=== PATIENT | female | born 1955 ===

== ENCOUNTER 2018-06-22 18:11 | Inpatient (IN) | payer MEDICARE ==
[2018-06-22 18:26] VITALS: BMI 26.6
--- NOTE | 2018-06-22 18:36 | ED PDOC ---
Arrival/HPI - General Time Seen by Provider: 06/22/18 18:12 Historian: Patient - History of Present Illness Narrative History of Present Illness (Text): 06/22/18 18:33 63 y/o female, pmh including hypothyroidism/RA/HLD/COPD, allergic to seafood with no drug allergy, chronic smoker, c/o coughing x 1 week with fatigue. Pt. stated that she has clear productive coughing progress to green color sputum, associated with fatigue for the past 3 days, admits wheezing, no chest pain or shortness of breath, no change in vision, no rash, no other medical or psychological complaints. Past Medical History - Provider Review Nursing Documentation Reviewed: Yes - Cardiac Hx Pacemaker: No - Neurological Hx Paralysis: No - Hematological/Oncological Hx Blood Transfusions: No Hx Blood Transfusion Reaction: No - Musculoskeletal/Rheumatological Hx Musculoskeletal Disorders: Yes - Psychiatric Hx Emotional Abuse: No Hx Physical Abuse: No Hx Substance Use: No - Anesthesia Hx Anesthesia Reactions: Yes (DIFFICULT TO AROUSE) Hx Malignant Hyperthermia: No - Suicidal Assessment Feels Threatened In Home Enviroment: No Family/Social History - Physician Review Nursing Documentation Reviewed: Yes Family/Social History: Unknown Family HX Hx Alcohol Use: No Hx Substance Use: No Hx Substance Use Treatment: No Allergies/Home Meds Allergies/Adverse Reactions: Allergies SEAFOOD Allergy (Mild, Uncoded 06/22/18 18:26) PAIN Home Medications: Home Meds Medication Instructions Recorded Confirmed Bupropion HCl [Bupropion HCl Xl] 150 mg PO DAILY 03/25/16 06/09/16 Cyclobenzaprine [Flexeril] 1 tab PO Q12H PRN 03/25/16 06/09/16 Docusate [Colace] 100 mg PO BID 03/25/16 06/09/16 Esomeprazole Magnesium [Nexium] 40 mg PO DAILY 03/25/16 06/09/16 Levothyroxine [Levoxyl] 0.125 mg PO DAILY 03/25/16 06/09/16 Methotrexate 6 tab PO QWK 03/25/16 06/09/16 Rosuvastatin Calcium [Crestor] 20 mg PO DAILY 03/25/16 06/09/16 Temazepam [Restoril] 1 tab PO HS 03/25/16 06/09/16 traMADol [Ultram] 50 mg PO TID 03/25/16 06/09/16 Polyethylene Glycol 3350 [Miralax] 17 gm PO DAILY 06/04/16 06/09/16 Hyoscyamine [Levsin] 1 tab PO Q4H PRN 06/09/16 06/09/16 Peg 400/Hypromellose/Glycerin [Cvs 1 drop TOP DAILY 06/09/16 06/09/16 Dry Eye Relief Eye Drops] Review of Systems - Review of Systems Constitutional: Fatigue. absent: Fevers Eyes: absent: Vision Changes ENT: absent: Hearing Changes Respiratory: Cough, Sputum, Wheezing. absent: SOB Cardiovascular: absent: Chest Pain, ARTHUR, Orthopnea Gastrointestinal: absent: Abdominal Pain, Nausea, Vomiting Musculoskeletal: absent: Arthralgias, Back Pain Skin: absent: Rash, Pruritis Psychiatric: absent: Anxiety, Depression, Suicidal Ideation Physical Exam Vital Signs Reviewed: Yes Temperature: Afebrile Blood Pressure: Normal Pulse: Regular Respiratory Rate: Normal Appearance: Positive for: Well-Appearing, Non-Toxic, Comfortable Pain Distress: None Mental Status: Positive for: Alert and Oriented X 3 - Systems Exam Head: Present: Atraumatic, Normocephalic Pupils: Present: PERRL Extroacular Muscles: Present: EOMI Conjunctiva: Present: Normal Ears: Present: Normal, NORMAL TM, Normal Canal. No: Erythema Mouth: Present: Moist Mucous Membranes Pharnyx: Present: Normal. No: ERYTHEMA, EXUDATE, TONSILS ENLARGED Nose (External): Present: Atraumatic. No: Abrasion, Contusion, Laceration Nose (Internal): Present: Normal Inspection, No Active Bleeding. No: Rhinorrhea, Septal Hematoma, Epistaxis Neck: Present: Normal Range of Motion. No: Meningeal Signs, MIDLINE TENDERNESS, Paraspinal Tenderness, Lymphadenopathy Respiratory/Chest: Present: Clear to Auscultation, Good Air Exchange, Wheezes (bilateral), Decreased Breath Sounds (bilateral), Rhonchi (bilateral). No: Respiratory Distress, Accessory Muscle Use, Rales, Retracting, Tachypneic Cardiovascular: Present: Regular Rate and Rhythm, Normal S1, S2. No: Murmurs Abdomen: No: Tenderness, Distention, Peritoneal Signs, Rebound, Guarding Back: Present: Normal Inspection Upper Extremity: Present: Normal Inspection. No: Cyanosis, Edema Lower Extremity: Present: Normal Inspection. No: Edema Neurological: Present: GCS=15, CN II-XII Intact, Speech Normal Skin: Present: Warm, Dry, Normal Color. No: Rashes Psychiatric: Present: Alert, Oriented x 3, Normal Insight, Normal Concentration Medical Decision Making ED Course and Treatment: 06/22/18 18:36 Differential: Pneumonia vs. Bronchitis vs. COPD vs. CHF vs. sepsis -Labs/bnp/trop -CXR -EKG -IV solumedrol/duoneb -phototypesetting equipment monitor -Observe and reassess 06/22/18 20:59 -EKG:SB @ 54 BPM, no ST elevation or depression, T wave inversion on lead aVR -CXR show no active disease -Labs show no acute findings -Lactic acid within normal limit -BNP within normal limit -Trop within normal limit -Pt. feels slightly better but she still has wheezing/rhonchi, not stable to be discharged home, will admit the patient for observation tele. -All labs and radiology results discussed with the patient and she agreed to be admitted. IV rocephine and azithromycin ordered for her. IVF and xopenex with oxygen 2L ordered as well. -Paging Dr. Natarajan for admission. 06/22/18 21:04 -I spoke to Dr. Natarajan about this case/labs/radiology result, agreed to admit the patient for observation and he would follow up on the case. - RAD Interpretation Radiology Orders: 06/22/18 18:31 CHEST PORTABLE [RAD] Stat - EKG Interpretation EKG Interpretation (Text): 06/22/18 18:38 SB @ 54 BPM, no ST elevation or depression, T wave inversion on lead aVR Interpreted by ED Physician: Yes Type: 12 lead EKG - Medication Orders Current Medication Orders: Albuterol/Ipratropium (Duoneb 3 Mg/0.5 Mg (3 Ml) Ud) 3 ml IH Q15M [facility]INA Stop: 06/22/18 19:16 Methylprednisolone (Solu-Medrol) 125 mg IVP STAT STA Stop: 06/22/18 18:32 - PA / PEDIATRIC PSYCHOLOGIST / Resident Statement /DO has reviewed & agrees with the documentation as recorded. Disposition/Present on Arrival - Present on Arrival Any Indicators Present on Arrival: No History of DVT/PE: No History of Uncontrolled Diabetes: No Urinary Catheter: No History of Decub. Ulcer: No History Surgical Site Infection Following: None - Disposition Have Diagnosis and Disposition been Completed?: Yes Diagnosis: COPD (chronic obstructive pulmonary disease) Disposition: HOSPITALIZED Disposition Time: 21:01 Patient Plan: Admission, Observation, Telemetry Patient Problems: Current Active Problems Problem Status Onset COPD (chronic obstructive pulmonary disease) Acute Condition: STABLE Referrals: Jason Natarajan JD, MD [Primary Care Provider] - Follow up with primary
[2018-06-22] MEDS: Albuterol-Ipratrop 3 mg / 0.5 (3 ml) UD IH SCH ×3 (19:23→20:00)
[2018-06-22 19:49] LABS: VENOUS BLOOD GAS BASE EXCESS 0.5 mmol/L (0.0-2.0); VENOUS BLOOD GAS PO2 114 mm/Hg (30-55)
[2018-06-22 19:50] LABS: BASO # 0.02 K/mm3 (0.0-2.0); BASO % 0.3 % (0.0-3.0); EOS # 0.1 (0.0-0.7); EOS % 1.8 % (1.5-5.0); GRAN # 3.72 (1.4-6.5); GRAN % 50.5 % (50.0-68.0); HEMOGLOBIN 13.9 g/dL (12.0-16.0); LYMPH % 40.9 % (22.0-35.0); MEAN CELL VOLUME 93.5 fl (80.0-105.0); MEAN CORPUSCULAR HGB CONC 33.1 g/dl (31.0-37.0); MEAN PLATELET VOLUME 10.3 fl (7.0-11.0); MONO # 0.5 (0.1-0.6); MONO % 6.5 % (1.0-6.0); RBC 4.49 10^6/uL (3.5-6.1); RED CELL DISTRIBUTION WIDTH 14.3 % (11.5-14.5); WHITE BLOOD COUNT 7.4 10^3/ul (4.5-11.0)
[2018-06-22 20:04] LABS: ALB/GLOB RATIO 1.2 (1.1-1.8); ALBUMIN 3.6 g/dL (3.0-4.8); ALT/SGPT 27 U/L (7-56); AST/SGOT 29 U/L (14-36); BLOOD UREA NITROGEN 20 mg/dL (7-21); GFR NON-AFRICAN AMERICAN > 60
[2018-06-22 20:14] LABS: B-TYPE NATRIURETIC PEPTIDE 63.3 pg/mL (0-450); TROPONIN I < 0.01 ng/mL
[2018-06-22] MEDS ORDERED: Azithromycin 500MG/NS 250ml 500 MG/250 ML BAG IVPB STA (20:58)
[2018-06-22] MEDS ORDERED: cefTRIAXone 1 gm 1 GM/100 ML BAG IVPB STA (20:58)
[2018-06-22] MEDS ORDERED: Levalbuterol 1.25 MG/3 ML Inhal Soln UD IH STA (21:02)
[2018-06-22] MEDS: Sodium Chloride 0.9% 1,000 ML IV SCH (21:45)
[2018-06-23] MEDS ORDERED: guaiFENesin 100 mg/5 ml Syrup UD PO ONE (01:16)
--- NOTE | 2018-06-23 06:29 | CARD ---
APPROVED REPORT Date of service: 06/22/2018 EKG Measurement Heart [id number] <Conclusion> Sinus bradycardia Nonspecific T wave abnormality Abnormal ECG
--- NOTE | 2018-06-23 08:35 | RAD ---
Date of service: 06/22/2018 HISTORY: medical clearance COMPARISON: 03/14/2014 FINDINGS: LUNGS: No active pulmonary disease. PLEURA: No significant pleural effusion identified, no pneumothorax apparent. CARDIOVASCULAR: No radiographic findings to suggest acute or significant cardiovascular disease. OSSEOUS STRUCTURES: No significant abnormalities. VISUALIZED UPPER ABDOMEN: Normal. OTHER FINDINGS: None. IMPRESSION: No active disease. No significant interval change compared to the prior examination(s).
[2018-06-23] MEDS: cefTRIAXone 1 gm 1 GM/100 ML BAG IVPB SCH (11:07)
[2018-06-23] MEDS: Azithromycin 500MG/NS 250ml 500 MG/250 ML BAG IVPB SCH (11:08)
[2018-06-23] MEDS: buPROPion 150 mg/24 Hours XL Tab PO SCH (13:34)
[2018-06-23] MEDS: Albuterol-Ipratrop 3 mg / 0.5 (3 ml) UD IH SCH ×2 (13:42→21:26)
--- NOTE | 2018-06-23 14:17 | HP ---
HISTORY OF PRESENT ILLNESS: The patient is a 63-year-old female with a history of COPD, admitted through the emergency department with shortness of breath and wheezing. The patient was admitted to the medical-surgical floor, has received a dose of IV Solu-Medrol as well as 1 g of Rocephin IV. She complains of some dyspnea on exertion, wheezing, occasional shortness of breath at rest. She has a cough productive of clear sputum. No hemoptysis. Denies fever, chills. No nausea. No vomiting. No chest pain. PAST MEDICAL HISTORY: The patient's past medical history includes rheumatoid arthritis, on methotrexate; hypothyroidism; hypercholesterolemia; GERD and depression and anxiety. There is no history of heart disease, diabetes mellitus or cancer. PAST SURGICAL HISTORY: Includes tubal ligation in the past and status post breast reduction surgery. ALLERGIES: THE PATIENT HAS NO KNOWN DRUG ALLERGIES. CURRENT MEDICATIONS: Include bupropion XL 150 daily, Flexeril 10 mg every 12 hours p.r.n., Colace 100 mg b.i.d., Nexium 40 mg daily, Levoxyl 112 mcg daily, methotrexate 50 mg weekly, Crestor 20 mg daily, Restoril 30 mg at bedtime, tramadol 50 mg three times daily, hyoscyamine 1 tab p.o. every 4 hours, MiraLax 17 g p.o. daily. SOCIAL HISTORY: The patient reports a history of one pack per day for greater than 40 years tobacco use. There is no history of alcohol or drug use. The patient is independent with ADLs and IADLs. FAMILY HISTORY: Noncontributory. REVIEW OF SYSTEMS: As above. PHYSICAL EXAMINATION: GENERAL: The patient is a well-developed female, in no acute distress. VITAL SIGNS: Blood pressure 161/82, temperature 97.9, pulse 68, respiratory rate 18. HEENT: Head is normocephalic, atraumatic. Pupils equal, round, reactive to light. Extraocular movements intact. NECK: Supple. No thyromegaly. No carotid bruit. No adenopathy. LUNGS: Show decreased breath sounds bilaterally. HEART: Regular rate and rhythm. ABDOMEN: Soft, nontender. Bowel sounds are normoactive. EXTREMITIES: Without cyanosis, clubbing or edema. NEUROLOGICAL: The patient is awake and oriented x3 without focal sensory or motor deficits. SKIN: Warm and dry. LABORATORY DATA: WBC 7.4, hemoglobin 13.9, hematocrit 42. Sodium 138, potassium 4.1, chloride 109, CO2 of 26, BUN 20, creatinine 0.8. Troponin is less than 0.01. CPK is 152. Chest x-ray shows no active disease. IMPRESSION: 1. Exacerbation of chronic obstructive pulmonary disease, possible bronchitis. 2. Rheumatoid arthritis. 3. Hypercholesterolemia. 4. Hypothyroidism. 5. Gastroesophageal reflux disease. 6. Depression/anxiety. PLAN: The patient is admitted to the medical-surgical floor, has been started on IV Solu-Medrol as well as Rocephin 1 g every 24 hours and azithromycin 500 mg every 24 hours. She is receiving DuoNeb treatments. Pulmonary consultation has been called with Dr. Mohamud. Social Work for discharge planning. CELESTE Torres MD
--- NOTE | 2018-06-23 21:11 | CON ---
DATE: 06/23/2018 REFERRING PHYSICIAN: Dr. Natarajan. REASON FOR CONSULT: Sinusitis, chronic obstructive lung disease. HISTORY OF PRESENT ILLNESS: This is a 63-year-old female, known history of chronic obstructive lung disease; active smoker; history of rheumatoid arthritis, been on methotrexate; hypothyroid; hyperlipidemia; gastroesophageal reflux disease; depression; anxiety disorder; comes into ER with few days of rhinitis, postnasal drip, cough, shortness of breath, wheezing. No nausea, no vomiting. No leg pain or leg swelling, received IV and inhaled bronchodilators and dilated with some improvement in the symptom, but because the symptom persisted, was admitted. Has a cough, shortness of breath, sinus pain. PAST MEDICAL HISTORY: As per history present illness. ALLERGIES: None known. SOCIAL HISTORY: Active smoker. Denies any alcohol use. FAMILY HISTORY: No significant cardiopulmonary disease reported. MEDICATIONS: She is on DuoNeb every 6 hours, Nicoderm patch daily, Protonix 40 mg daily, Rocephin 1 g daily, IV fluid normal saline 100 mL/hour, Solu-Medrol 60 mg every 8 hours, Synthroid 112 mcg daily, Tylenol p.r.n. basis, Xanax 0.5 mg at bedtime p.r.n., Zithromax 500 mg daily. REVIEW OF SYSTEMS: No headache. Has rhinitis, postnasal drip, facial pain, cough, shortness of breath, wheezing. No nausea, vomiting, diarrhea. No leg pain or leg swelling. PHYSICAL EXAMINATION: GENERAL: No acute distress. VITAL SIGNS: Temperature is 98, heart rate 66, respiratory rate is 18, blood pressure 161/82, pulse ox 95% on 2 liters nasal cannula. HEENT: Moist mucous membrane. NECK: Supple. No JVD. Bilateral maxillary area tenderness. LUNGS: Have prolonged expiratory wheezing. HEART: S1 and S2. ABDOMEN: Soft, nontender. No organomegaly. EXTREMITIES: No edema. NEUROLOGIC: Awake, alert and follows simple commands. LABORATORY DATA: Shows hemoglobin 13.9, hematocrit 42, WBC 7.4, platelet is 156. VBG show pH 7.40, pCO2 is 41, O2 of 114. Sodium 138, potassium 4.1, chloride 108, bicarbonate 26, BUN 20, creatinine is 0.8, glucose 95, calcium 9, magnesium 2, AST 29, ALT 27, alk phos is 54. Troponin less than 0.01. ProBNP 63. Albumin is 36. Chest x-ray done in ER, there is no infiltrate or effusion. IMPRESSION AND PLAN: Sinusitis with exacerbation of chronic obstructive pulmonary disease, history of rheumatoid arthritis, been on methotrexate, hypothyroid. May have a component of sleep apnea syndrome, gastroesophageal reflux disease, hyperlipidemia. Spoke to nurse practitioner. Added Wellbutrin and Nicoderm patch. Continue IV and inhaled bronchodilator, antibiotics, Flonase one spray to each nostril twice a day. The patient has to stop smoking. Gastric and deep venous thrombosis prophylaxis. Thank you and we will follow with you Reed Mohamud MD
[2018-06-23] MEDS: Sodium Chloride 0.9% 1,000 ML IV SCH (21:27)
[2018-06-24] MEDS: Albuterol-Ipratrop 3 mg / 0.5 (3 ml) UD IH SCH ×4 (01:56→19:40)
[2018-06-24] MEDS: Levothyroxine 112 MCG TAB PO SCH (05:41)
[2018-06-24] MEDS: Pantoprazole 40 mg EC Tab PO SCH (05:41)
--- NOTE | 2018-06-24 08:57 | CP.PCM.PN ---
Subjective - Date & Time of Evaluation Date of Evaluation: 06/24/18 Time of Evaluation: 08:40 - Subjective Subjective: c/o earache, throat discomfort, less SOB, no wheezing, denies chest pain Objective - Vital Signs/Intake and Output Vital Signs (last 24 hours): Temp Pulse Resp BP Pulse Ox 98.3 F 79 19 131/62 100 06/24/18 00:01 06/24/18 06:00 06/24/18 00:01 06/24/18 00:01 06/24/18 00:01 Intake and Output: 06/24/18 06/24/18 06:59 18:59 Intake Total 1979 Balance 1979 - Medications Medications: Current Medications Acetaminophen (Tylenol 325mg Tab) 650 mg PO Q6H PRN PRN Reason: Fever >100.4 F Last Admin: 06/23/18 19:42 Dose: 650 mg Acetaminophen/Butalbital/Caffeine (Fioricet) 1 tab PO Q4H PRN PRN Reason: Headache Albuterol/Ipratropium (Duoneb 3 Mg/0.5 Mg (3 Ml) Ud) 3 ml IH [id number] [facility] Last Admin: 06/24/18 07:58 Dose: 3 ml Alprazolam (Xanax) 0.5 mg PO HS PRN; Protocol PRN Reason: Insomnia Last Admin: 06/23/18 23:50 Dose: 0.5 mg Bupropion HCl (Wellbutrin Xl) 150 mg PO DAILY [facility] Last Admin: 06/23/18 13:34 Dose: 150 mg Docusate Sodium (Colace) 100 mg PO BID [facility] Enoxaparin Sodium (Lovenox) 40 mg SC DAILY [facility]; Protocol Home Med (Home Med) 1 unit PO DAILY [facility] Sodium Chloride (Sodium Chloride 0.9%) 1,000 mls @ 100 mls/hr IV .Q10H [facility]INA Last Admin: 06/23/18 21:27 Dose: 100 mls/hr Ceftriaxone Sodium (Rocephin 1 Gram Ivpb) 1 gm in 100 mls @ 100 mls/hr IVPB DAILY [facility]; Protocol Last Admin: 06/23/18 11:07 Dose: 100 mls/hr Azithromycin (Zithromax 500mg In Ns) 500 mg in 250 mls @ 167 mls/hr IVPB DAILY [facility]; Protocol Last Admin: 06/23/18 11:08 Dose: 167 mls/hr Levothyroxine Sodium (Synthroid) 112 mcg PO 0600 [facility] Last Admin: 06/24/18 05:41 Dose: 112 mcg Methylprednisolone (Solu-Medrol) 60 mg IVP Q8 [facility] Last Admin: 06/24/18 05:41 Dose: 60 mg Nicotine (Nicoderm Cq) 1 patch TD DAILY [facility] Last Admin: 06/23/18 15:29 Dose: 1 patch Pantoprazole Sodium (Protonix Ec Tab) 40 mg PO 0600 [facility] Last Admin: 06/24/18 05:41 Dose: 40 mg - Labs Labs: 06/22/18 19:34 06/22/18 19:34 - Respiratory Exam Respiratory Exam: Decreased Breath Sounds - Cardiovascular Exam Cardiovascular Exam: REGULAR RHYTHM - GI/Abdominal Exam GI & Abdominal Exam: Soft, Normal Bowel Sounds - Extremities Exam Extremities Exam: Normal Inspection - Neurological Exam Neurological Exam: Alert, Awake - Skin Skin Exam: Dry, Warm Assessment and Plan (1) COPD (chronic obstructive pulmonary disease) Status: Acute - Assessment and Plan (Free Text) Plan: continue IV Abx, taper steroids as tolerated, pulm consult appreciated
[2018-06-24] MEDS: buPROPion 150 mg/24 Hours XL Tab PO SCH (09:10)
[2018-06-24] MEDS: Apap-Butalbital-Caffeine 325-50-40mg Tab PO PRN ×2 (09:10→17:06)
[2018-06-24] MEDS: CHANTIX PO SCH (09:12)
[2018-06-24] MEDS: Azithromycin 500MG/NS 250ml 500 MG/250 ML BAG IVPB SCH (09:13)
[2018-06-24] MEDS: cefTRIAXone 1 gm 1 GM/100 ML BAG IVPB SCH (09:15)
[2018-06-24] MEDS: Enoxaparin 40 mg Syringe SC SCH (10:00)
[2018-06-24] MEDS: Fluticasone Nasal 50 mcg/Spray NS SCH (17:39)
--- NOTE | 2018-06-24 18:25 | PN ---
DATE: 06/24/2018 PULMONARY PROGRESS NOTE REFERRING PHYSICIAN: Dr. Natarajan. SUBJECTIVE: She is lying in the bed, head up 45 degrees. Feels better. Still has cough, shortness of breath, and wheezing. No nausea, no vomiting, no diarrhea. No leg pain or leg swelling. PHYSICAL EXAMINATION: GENERAL: In no acute distress. VITAL SIGNS: Temperature is 98, heart rate is 64, respiratory rate is 18, blood pressure 132/77, and pulse ox 98% on nasal cannula. HEENT: Moist mucous membrane. Crowded airway. Mallampati score is 4. NECK: Supple. No JVD. LUNGS: Have a prolonged expiratory phase with wheezing. HEART: S1 and S2. ABDOMEN: Soft, nontender, no organomegaly. EXTREMITIES: No edema. NEUROLOGIC: Awake, alert, and follows simple command. MEDICATIONS: She is on Colace 100 mg twice a day, DuoNeb every 6 hours, Fioricet 1 tab every 4 hours p.r.n., Flonase 1 spray in nostril daily, Lovenox 40 mg subcu daily, Nicoderm patch daily, [place]ergus nasal saline 1 spray four times a day, Protonix 40 mg daily, Rocephin 1 g daily, IV fluid normal saline 100 mL/hour, Solu-Medrol 60 mg every 8 hours, Synthroid 112 mcg daily, Tylenol p.r.n., Wellbutrin XL 150 mg day, Xanax 0.5 mg at bedtime p.r.n., Zithromax 500 mg daily. LABORATORY DATA: Reviewed, shows TSH of 3.58. IMPRESSION AND PLAN: Sinusitis with exacerbation of chronic obstructive pulmonary disease; rheumatoid arthritis, on methotrexate use; hypothyroid. There may be a component of sleep apnea syndrome, gastroesophageal reflux disease, hyperlipidemia. Pulmonary point of view, slowly improving. Continue IV and inhaled bronchodilator. Gastric prophylaxis and deep venous thrombosis prophylaxis. Fall precaution. Urged her to stop smoking. On Wellbutrin and Nicoderm patch. Outpatient sleep study, PFT. Thank you and we will follow with you. Reed Mohamud MD Psychiatric # [id number]
[2018-06-25] MEDS: Levothyroxine 112 MCG TAB PO SCH (06:32)
[2018-06-25] MEDS: Pantoprazole 40 mg EC Tab PO SCH (06:32)
[2018-06-25] MEDS: Albuterol-Ipratrop 3 mg / 0.5 (3 ml) UD IH SCH ×2 (07:54→13:53)
[2018-06-25] MEDS: Fluticasone Nasal 50 mcg/Spray NS SCH (09:08)
[2018-06-25] MEDS: Enoxaparin 40 mg Syringe SC SCH (09:09)
[2018-06-25] MEDS: CHANTIX PO SCH (09:09)
[2018-06-25] MEDS: cefTRIAXone 1 gm 1 GM/100 ML BAG IVPB SCH ×2 (09:10→11:17)
[2018-06-25] MEDS: Sodium Chloride 0.9% 1,000 ML IV SCH ×2 (09:12→11:17)
[2018-06-25] MEDS: buPROPion 150 mg/24 Hours XL Tab PO SCH (09:12)
--- NOTE | 2018-06-25 09:37 | CP.PCM.CON ---
History of Present Illness - History of Present Illness History of Present Illness: 63 y/o AA female admitted to [facility] Thursday for COPD Exacerbation. Pt has PMHX significant for hypothyroidism, hypercholesterolemia, GERD, depression/anxiety and RA. ENT has been asked to see the patient regarding throat/ear/nose pain. Pt states she began with URI symptoms last week ear clogging sensation, nasal congestion and throat pain. Pt had Migraine headache which has been improving. positive nasal congestion with mucus. Throat pain persists with muffled hearing. Denies frequent sinus infections or taking immunosupressive tx for RA Review of Systems - Constitutional Constitutional: As Per HPI - EENT Eyes: As Per HPI Ears: As Per HPI Nose/Mouth/Throat: As Per HPI - Breasts Breasts: As Per HPI - Cardiovascular Cardiovascular: As Per HPI - Respiratory Respiratory: As Per HPI - Gastrointestinal Gastrointestinal: As Per HPI - Genitourinary Genitourinary: As Per HPI - Reproductive: Female Reproductive:Female: As Per HPI - Menstruation Menstruation: As Per HPI - Musculoskeletal Musculoskeletal: As Per HPI - Integumentary Integumentary: As Per HPI - Neurological Neurological: As Per HPI - Psychiatric Psychiatric: As Per HPI - Endocrine Endocrine: As Per HPI - Hematologic/Lymphatic Hematologic: As Per HPI Past Patient History - Infectious Disease Hx of Infectious Diseases: None - Past Social History Smoking Status: Heavy Smoker > 10 Cigarettes Daily - CARDIAC Hx Cardiac Disorders: Yes Hx Hypercholesterolemia: Yes - PULMONARY Hx Respiratory Disorders: Yes Hx Chronic Obstructive Pulmonary Disease (COPD): Yes - NEUROLOGICAL Hx Neurological Disorder: No - HEENT Hx HEENT Problems: Yes Other/Comment: Wears glasses - RENAL Hx Chronic Kidney Disease: No - ENDOCRINE/METABOLIC Hx Endocrine Disorders: Yes Hx Hypothyroidism: Yes - HEMATOLOGICAL/ONCOLOGICAL Hx Blood Disorders: No - INTEGUMENTARY Hx Dermatological Problems: No - MUSCULOSKELETAL/RHEUMATOLOGICAL Hx Musculoskeletal Disorders: Yes Hx Arthritis: Yes Hx Falls: No - GASTROINTESTINAL Hx Gastrointestinal Disorders: No - GENITOURINARY/GYNECOLOGICAL Hx Genitourinary Disorders: No - PSYCHIATRIC Hx Psychophysiologic Disorder: No Hx Substance Use: No - SURGICAL HISTORY Hx Surgeries: Yes - ANESTHESIA Hx Anesthesia Reactions: Yes (DIFFICULT TO AROUSE) Hx Malignant Hyperthermia: No Meds Allergies/Adverse Reactions: Allergies Allergy/AdvReac Type Severity Reaction Status Date / Time SEAFOOD Allergy Mild PAIN Uncoded 06/22/18 18:26 - Medications Medications: Current Medications Acetaminophen (Tylenol 325mg Tab) 650 mg PO Q6H PRN PRN Reason: Fever >100.4 F Last Admin: 06/23/18 19:42 Dose: 650 mg Acetaminophen/Butalbital/Caffeine (Fioricet) 1 tab PO Q4H PRN PRN Reason: Headache Last Admin: 06/24/18 09:10 Dose: 1 tab Albuterol/Ipratropium (Duoneb 3 Mg/0.5 Mg (3 Ml) Ud) 3 ml IH [id number] [facility]INA Last Admin: 06/24/18 14:39 Dose: 3 ml Alprazolam (Xanax) 0.5 mg PO HS PRN; Protocol PRN Reason: Insomnia Last Admin: 06/23/18 23:50 Dose: 0.5 mg Azithromycin (Zithromax) 500 mg PO DAILY [facility] Bupropion HCl (Wellbutrin Xl) 150 mg PO DAILY [facility] Last Admin: 06/24/18 09:10 Dose: 150 mg Docusate Sodium (Colace) 100 mg PO BID [facility] Last Admin: 06/24/18 09:09 Dose: 100 mg Enoxaparin Sodium (Lovenox) 40 mg SC DAILY [facility]; Protocol Last Admin: 06/24/18 10:00 Dose: 40 mg Home Med (Home Med) 1 unit PO DAILY [facility] Last Admin: 06/24/18 09:12 Dose: 1 unit Sodium Chloride (Sodium Chloride 0.9%) 1,000 mls @ 100 mls/hr IV .Q10H [facility] Last Admin: 06/23/18 21:27 Dose: 100 mls/hr Ceftriaxone Sodium (Rocephin 1 Gram Ivpb) 1 gm in 100 mls @ 100 mls/hr IVPB DAILY [facility]; Protocol Last Admin: 06/24/18 09:15 Dose: 100 mls/hr Levothyroxine Sodium (Synthroid) 112 mcg PO 0600 [facility] Last Admin: 06/24/18 05:41 Dose: 112 mcg Methylprednisolone (Solu-Medrol) 60 mg IVP Q8 [facility] Last Admin: 06/24/18 14:32 Dose: 60 mg Nicotine (Nicoderm Cq) 1 patch TD DAILY [facility] Last Admin: 06/24/18 15:10 Dose: 1 patch Pantoprazole Sodium (Protonix Ec Tab) 40 mg PO 0600 [facility] Last Admin: 06/24/18 05:41 Dose: 40 mg Physical Exam - Constitutional Appears: Well, Non-toxic - Head Exam Head Exam: NORMAL INSPECTION - Eye Exam Eye Exam: EOMI, Normal appearance, PERRL Pupil Exam: NORMAL ACCOMODATION - ENT Exam ENT Exam: Mucous Membranes Moist Additional comments: Nose: mild mucus stranding bilaterally with septum deviation to the left Throat: wnl minimal erythema - Expanded ENT Exam Expanded TM/Canal Exam: Effusion: Bilateral (mild dullness with mild retraction right side) Mouth exam: normal external inspection Teeth exam: normal external inspection Throat exam: Normal Inspection - Neck Exam Neck exam: Positive for: Normal Inspection. Negative for: Lymphadenopathy Results - Vital Signs Recent Vital Signs: Last Vital Signs Temp 97.8 F 06/24/18 09:16 Pulse 64 06/24/18 09:16 Resp 18 06/24/18 09:16 BP 126/73 06/24/18 09:16 Pulse Ox 97 06/24/18 09:16 - Labs Result Diagrams: 06/22/18 19:34 06/22/18 19:34 Labs: Laboratory Results - last 24 hr 06/24/18 07:20 TSH 3rd Generation 3.58 Assessment & Plan (1) COPD (chronic obstructive pulmonary disease) Status: Acute (2) Acute Eustachian salpingitis, bilateral Status: Acute (3) Throat pain in adult Status: Acute - Assessment and Plan (Free Text) Plan: continue IV abx for treatment of COPD and sinus out patient abx, saline - Date & Time Date: 06/24/18 Time: 17:30
--- NOTE | 2018-06-25 11:28 | CP.PCM.PN ---
Subjective - Date & Time of Evaluation Date of Evaluation: 06/25/18 Time of Evaluation: 09:30 - Subjective Subjective: resting comfortably, NAD, no chest pain, no SOB Objective - Vital Signs/Intake and Output Vital Signs (last 24 hours): Temp Pulse Resp BP Pulse Ox 97.3 F L 54 L 18 139/74 94 L 06/25/18 08:39 06/25/18 08:39 06/25/18 08:39 06/25/18 08:39 06/25/18 08:39 Intake and Output: 06/25/18 06/25/18 06:59 18:59 Intake Total 240 Balance 240 - Medications Medications: Current Medications Acetaminophen (Tylenol 325mg Tab) 650 mg PO Q6H PRN PRN Reason: Fever >100.4 F Last Admin: 06/23/18 19:42 Dose: 650 mg Acetaminophen/Butalbital/Caffeine (Fioricet) 1 tab PO Q4H PRN PRN Reason: Headache Last Admin: 06/24/18 17:06 Dose: 1 tab Albuterol/Ipratropium (Duoneb 3 Mg/0.5 Mg (3 Ml) Ud) 3 ml IH [id number] [facility] Last Admin: 06/25/18 07:54 Dose: 3 ml Alprazolam (Xanax) 0.5 mg PO HS PRN; Protocol PRN Reason: Insomnia Last Admin: 06/25/18 00:36 Dose: 0.5 mg Azithromycin (Zithromax) 500 mg PO DAILY [facility] Last Admin: 06/25/18 09:12 Dose: 500 mg Bupropion HCl (Wellbutrin Xl) 150 mg PO DAILY [facility] Last Admin: 06/25/18 09:12 Dose: 150 mg Docusate Sodium (Colace) 100 mg PO BID [facility] Last Admin: 06/25/18 09:08 Dose: 100 mg Enoxaparin Sodium (Lovenox) 40 mg SC DAILY [facility]; Protocol Last Admin: 06/25/18 09:09 Dose: 40 mg Fluticasone Propionate (Flonase) 1 actuation NS DAILY [facility] Last Admin: 06/25/18 09:08 Dose: 1 actuation Home Med (Home Med) 1 unit PO DAILY [facility] Last Admin: 06/25/18 09:09 Dose: 1 unit Ceftriaxone Sodium (Rocephin 1 Gram Ivpb) 1 gm in 100 mls @ 100 mls/hr IVPB DAILY [facility]; Protocol Last Admin: 06/25/18 11:17 Dose: 100 mls/hr Levothyroxine Sodium (Synthroid) 112 mcg PO 0600 [facility] Last Admin: 06/25/18 06:32 Dose: 112 mcg Methylprednisolone (Solu-Medrol) 40 mg IVP Q8 [facility] Nicotine (Nicoderm Cq) 1 patch TD DAILY [facility] Last Admin: 06/25/18 09:10 Dose: 1 patch Pantoprazole Sodium (Protonix Ec Tab) 40 mg PO 0600 [facility] Last Admin: 06/25/18 06:32 Dose: 40 mg Sodium Chloride ([place] Nasal [place]) 0 ml NS QID [facility] Last Admin: 06/24/18 22:59 Dose: Not Given - Labs Labs: 06/22/18 19:34 06/22/18 19:34 - Respiratory Exam Respiratory Exam: Decreased Breath Sounds, NORMAL BREATHING PATTERN - Cardiovascular Exam Cardiovascular Exam: REGULAR RHYTHM - GI/Abdominal Exam GI & Abdominal Exam: Soft, Normal Bowel Sounds - Extremities Exam Extremities Exam: Normal Inspection - Neurological Exam Neurological Exam: Alert, Awake - Skin Skin Exam: Dry, Warm Assessment and Plan (1) COPD (chronic obstructive pulmonary disease) Status: Acute - Assessment and Plan (Free Text) Plan: pt with poor IV access, will taper steroids, continue nebs, IV Abx, pulm follow- up
[2018-06-25] MEDS: MethylPREDNISolone 40 mg Vial IVP SCH ×2 (14:00→21:31)
[2018-06-25] MEDS: Apap-Butalbital-Caffeine 325-50-40mg Tab PO PRN (21:32)
--- NOTE | 2018-06-25 22:20 | PN ---
DATE: 06/25/2018 PULMONARY PROGRESS NOTE REFERRING PHYSICIAN: Dr. Natarajan. SUBJECTIVE: She is lying in the bed, head up 45 degrees. Sleepy, arousable. Still has cough, shortness of breath, and wheezing. No nausea, no vomiting, no diarrhea. No leg pain or leg swelling. PHYSICAL EXAMINATION: GENERAL: In no acute distress. VITAL SIGNS: Temperature is 98, heart rate is 73, respiratory rate is 18, blood pressure 138/80, and pulse ox 95% on room air. HEENT: Moist mucous membrane. Crowded airway. NECK: Supple. No JVD. LUNGS: Have a prolonged expiratory phase with some wheezing, but better airflow. HEART: S1 and S2. ABDOMEN: Soft, nontender, no organomegaly. EXTREMITIES: No edema. NEUROLOGIC: Awake, alert, and follows simple command. MEDICATIONS: She is on Colace 100 mg twice a day, albuterol and Atrovent nebulizer every 6 hours round the clock, Fioricet 1 tab every 4 hours p.r.n., Flonase 1 spray in each nostril daily, Lovenox 40 mg subcu daily, Nicoderm patch daily, Protonix 40 mg daily, Rocephin 1 g IV daily, Solu-Medrol 40 mg every 8 hours, Synthroid 112 mcg daily, Tylenol p.r.n. basis, Wellbutrin XL 150 mg daily, Xanax 0.5 mg at bedtime p.r.n., and Zithromax 500 mg daily. LABORATORY DATA: Reviewed. No new lab is available since yesterday. IMPRESSION AND PLAN: Sinusitis with chronic obstructive lung disease, rheumatoid arthritis, history of methotrexate use, hypothyroid. Pulmonary point of view, doing okay. Continue IV and inhaled bronchodilator. Sleep apnea precaution. Gastroesophageal reflux disease precaution. Gastric prophylaxis and deep venous thrombosis prophylaxis. Out of bed to chair. Upon discharge as an outpatient, will need PFT followup. Consider sleep study. Thank you and we will follow with you. Reed Mohamud MD
[2018-06-26] MEDS: Albuterol-Ipratrop 3 mg / 0.5 (3 ml) UD IH SCH ×5 (01:27→20:39)
[2018-06-26] MEDS: Pantoprazole 40 mg EC Tab PO SCH (06:25)
[2018-06-26] MEDS: Levothyroxine 112 MCG TAB PO SCH (06:26)
[2018-06-26] MEDS: MethylPREDNISolone 40 mg Vial IVP SCH ×2 (06:26→22:00)
[2018-06-26] MEDS: Sodium Chloride 0.9% 1,000 ML IV SCH (09:44)
[2018-06-26] MEDS: CHANTIX PO SCH (10:54)
[2018-06-26] MEDS: Enoxaparin 40 mg Syringe SC SCH (10:54)
[2018-06-26] MEDS: Fluticasone Nasal 50 mcg/Spray NS SCH (10:54)
[2018-06-26] MEDS: cefTRIAXone 1 gm 1 GM/100 ML BAG IVPB SCH (10:55)
[2018-06-26] MEDS: buPROPion 150 mg/24 Hours XL Tab PO SCH (10:55)
--- NOTE | 2018-06-26 12:06 | CP.PCM.PN ---
Subjective - Date & Time of Evaluation Date of Evaluation: 06/26/18 Time of Evaluation: 10:30 - Subjective Subjective: resting comfortably, NAD, no chest pain, no SOB Objective - Vital Signs/Intake and Output Vital Signs (last 24 hours): Temp Pulse Resp BP Pulse Ox 97.7 F 55 L 19 145/81 95 06/26/18 06:00 06/26/18 06:00 06/26/18 06:00 06/26/18 06:00 06/26/18 06:00 Intake and Output: 06/26/18 06/26/18 06:59 18:59 Intake Total 360 Balance 360 - Medications Medications: Current Medications Acetaminophen (Tylenol 325mg Tab) 650 mg PO Q6H PRN PRN Reason: Fever >100.4 F Last Admin: 06/23/18 19:42 Dose: 650 mg Acetaminophen/Butalbital/Caffeine (Fioricet) 1 tab PO Q4H PRN PRN Reason: Headache Last Admin: 06/25/18 21:32 Dose: 1 tab Albuterol/Ipratropium (Duoneb 3 Mg/0.5 Mg (3 Ml) Ud) 3 ml IH [id number] [facility] Last Admin: 06/26/18 09:44 Dose: Not Given Alprazolam (Xanax) 0.5 mg PO HS PRN; Protocol PRN Reason: Insomnia Last Admin: 06/25/18 23:41 Dose: 0.5 mg Azithromycin (Zithromax) 500 mg PO DAILY [facility] Last Admin: 06/26/18 10:55 Dose: 500 mg Bupropion HCl (Wellbutrin Xl) 150 mg PO DAILY [facility] Last Admin: 06/26/18 10:55 Dose: 150 mg Docusate Sodium (Colace) 100 mg PO BID [facility] Last Admin: 06/26/18 10:53 Dose: 100 mg Enoxaparin Sodium (Lovenox) 40 mg SC DAILY [facility]; Protocol Last Admin: 06/26/18 10:54 Dose: 40 mg Fluticasone Propionate (Flonase) 1 actuation NS DAILY [facility] Last Admin: 06/26/18 10:54 Dose: 1 actuation Home Med (Home Med) 1 unit PO DAILY [facility] Last Admin: 06/26/18 10:54 Dose: 1 unit Ceftriaxone Sodium (Rocephin 1 Gram Ivpb) 1 gm in 100 mls @ 100 mls/hr IVPB DAILY [facility]; Protocol Last Admin: 06/26/18 10:55 Dose: 100 mls/hr Levothyroxine Sodium (Synthroid) 112 mcg PO 0600 [facility] Last Admin: 06/26/18 06:26 Dose: 112 mcg Methylprednisolone (Solu-Medrol) 40 mg IVP Q12 [facility] Nicotine (Nicoderm Cq) 1 patch TD DAILY [facility] Last Admin: 06/26/18 10:54 Dose: 1 patch Pantoprazole Sodium (Protonix Ec Tab) 40 mg PO 0600 [facility] Last Admin: 06/26/18 06:25 Dose: 40 mg Sodium Chloride ([place] Nasal [place]) 0 ml NS QID [facility] Last Admin: 06/26/18 10:54 Dose: 2 actuation - Labs Labs: 06/22/18 19:34 06/22/18 19:34 - Respiratory Exam Respiratory Exam: Clear to Ausculation Bilateral, NORMAL BREATHING PATTERN - Cardiovascular Exam Cardiovascular Exam: REGULAR RHYTHM - GI/Abdominal Exam GI & Abdominal Exam: Soft, Normal Bowel Sounds - Extremities Exam Extremities Exam: Normal Inspection - Neurological Exam Neurological Exam: Alert, Awake - Skin Skin Exam: Dry, Warm Assessment and Plan (1) COPD (chronic obstructive pulmonary disease) Status: Acute - Assessment and Plan (Free Text) Plan: taper steroids as tolerated, continue IV Abx, nebulizer tx, pulmonary follow-up, SW for DC planning
[2018-06-26] MEDS: Apap-Butalbital-Caffeine 325-50-40mg Tab PO PRN (21:49)
--- NOTE | 2018-06-26 22:57 | PN ---
DATE: 06/26/2018 PULMONARY PROGRESS NOTE REFERRING PHYSICIAN: Dr. Natarajan. SUBJECTIVE: She is lying in the bed, sleepy, arousable. Still has cough, shortness of breath, wheezing. No nausea, vomiting, diarrhea, leg pain or leg swelling. OBJECTIVE: GENERAL: In no acute distress. VITAL SIGNS: Temperature is 98, heart rate is 60, respiratory rate is 20, blood pressure 145/81, pulse ox 95% on room air. HEENT: Moist mucous membrane. Crowded airway. NECK: Supple. No JVD. LUNGS: Have a prolonged expiratory phase with wheezing. HEART: S1 and S2. ABDOMEN: Soft and nontender. No organomegaly. EXTREMITIES: No edema. NEUROLOGICAL: Awake and alert. Follows simple command. MEDICATIONS: She is on Colace 100 mg twice a day, on Fioricet one tab every 4 hours p.r.n., Flonase one spray in each nostril daily, Lovenox 40 mg subcu daily, Nicoderm patch daily, nasal saline four times a day, Protonix 40 mg daily, Rocephin 1 g daily, Solu-Medrol 40 mg every 8 hours, Synthroid 112 mcg daily, Tylenol p.r.n., Wellbutrin 50 mg daily, Xanax 0.5 mg at bedtime p.r.n., Zithromax 500 mg daily. LABORATORY DATA: Reviewed. No new lab is available since yesterday. IMPRESSION AND PLAN: Sinusitis with chronic obstructive lung disease, rheumatoid arthritis, history of methotrexate-dependent hypothyroid. Pulmonary point of view, still has wheezing and short of breath. Continue Solu-Medrol. Continue antibiotics. Keep head at 45 degrees. Gastric prophylaxis, deep venous thrombosis prophylaxis. Aspiration precautions. Outpatient sleep study. Thank you and we will follow with you. Reed Mohamud MD
[2018-06-27] MEDS: Albuterol-Ipratrop 3 mg / 0.5 (3 ml) UD IH SCH ×4 (01:57→20:14)
[2018-06-27] MEDS: Pantoprazole 40 mg EC Tab PO SCH (06:38)
[2018-06-27] MEDS: Levothyroxine 112 MCG TAB PO SCH (06:39)
[2018-06-27 08:33] LABS: HEMOGLOBIN 14.7 g/dL (12.0-16.0); MEAN CELL VOLUME 93.9 fl (80.0-105.0); MEAN CORPUSCULAR HEMOGLOBIN 31.1 pg (25.0-35.0); MEAN CORPUSCULAR HGB CONC 33.1 g/dl (31.0-37.0); RBC 4.73 10^6/uL (3.5-6.1); RED CELL DISTRIBUTION WIDTH 14.8 % (11.5-14.5); WHITE BLOOD COUNT 12.1 10^3/ul (4.5-11.0)
[2018-06-27 09:03] LABS: ALB/GLOB RATIO 1.1 (1.1-1.8); ALBUMIN 3.3 g/dL (3.0-4.8); ALT/SGPT 37 U/L (7-56); AST/SGOT 21 U/L (14-36); BLOOD UREA NITROGEN 20 mg/dL (7-21); CALCIUM 8.8 mg/dL (8.4-10.5); GFR NON-AFRICAN AMERICAN > 60
[2018-06-27] MEDS: cefTRIAXone 1 gm 1 GM/100 ML BAG IVPB SCH ×2 (10:41→10:55)
[2018-06-27] MEDS: buPROPion 150 mg/24 Hours XL Tab PO SCH (10:42)
[2018-06-27] MEDS: Enoxaparin 40 mg Syringe SC SCH (10:43)
[2018-06-27] MEDS: CHANTIX PO SCH (10:46)
[2018-06-27] MEDS: Fluticasone Nasal 50 mcg/Spray NS SCH (10:46)
--- NOTE | 2018-06-27 10:47 | CP.PCM.PN ---
Subjective - Date & Time of Evaluation Date of Evaluation: 06/27/18 Time of Evaluation: 08:45 - Subjective Subjective: NAD, denies chest pain, no SOB or wheezing Objective - Vital Signs/Intake and Output Vital Signs (last 24 hours): Temp Pulse Resp BP Pulse Ox 97.9 F 56 L 20 149/90 96 06/27/18 06:00 06/27/18 06:00 06/27/18 06:00 06/27/18 06:00 06/27/18 06:00 - Medications Medications: Current Medications Acetaminophen (Tylenol 325mg Tab) 650 mg PO Q6H PRN PRN Reason: Fever >100.4 F Last Admin: 06/23/18 19:42 Dose: 650 mg Acetaminophen/Butalbital/Caffeine (Fioricet) 1 tab PO Q4H PRN PRN Reason: Headache Last Admin: 06/26/18 21:49 Dose: 1 tab Albuterol/Ipratropium (Duoneb 3 Mg/0.5 Mg (3 Ml) Ud) 3 ml IH [id number] [facility] Last Admin: 06/27/18 07:54 Dose: 3 ml Alprazolam (Xanax) 0.5 mg PO HS PRN; Protocol PRN Reason: Insomnia Last Admin: 06/26/18 21:50 Dose: 0.5 mg Azithromycin (Zithromax) 500 mg PO DAILY [facility] Last Admin: 06/26/18 10:55 Dose: 500 mg Bupropion HCl (Wellbutrin Xl) 150 mg PO DAILY [facility] Last Admin: 06/26/18 10:55 Dose: 150 mg Docusate Sodium (Colace) 100 mg PO BID [facility] Last Admin: 06/26/18 17:22 Dose: 100 mg Fluticasone Propionate (Flonase) 1 actuation NS DAILY [facility] Last Admin: 06/26/18 10:54 Dose: 1 actuation Home Med (Home Med) 1 unit PO DAILY [facility] Last Admin: 06/26/18 10:54 Dose: 1 unit Levothyroxine Sodium (Synthroid) 112 mcg PO 0600 [facility] Last Admin: 06/27/18 06:39 Dose: 112 mcg Nicotine (Nicoderm Cq) 1 patch TD DAILY [facility] Last Admin: 06/26/18 10:54 Dose: 1 patch Pantoprazole Sodium (Protonix Ec Tab) 40 mg PO 0600 [facility] Last Admin: 06/27/18 06:38 Dose: 40 mg Sodium Chloride ([place] Nasal [place]) 0 ml NS QID [facility] Last Admin: 06/26/18 17:22 Dose: 2 actuation - Labs Labs: 06/27/18 07:00 06/27/18 07:00 - Respiratory Exam Respiratory Exam: Clear to Ausculation Bilateral, NORMAL BREATHING PATTERN - Cardiovascular Exam Cardiovascular Exam: REGULAR RHYTHM - GI/Abdominal Exam GI & Abdominal Exam: Soft, Normal Bowel Sounds - Extremities Exam Extremities Exam: Normal Inspection - Neurological Exam Neurological Exam: Alert, Awake - Skin Skin Exam: Dry, Warm Assessment and Plan (1) COPD (chronic obstructive pulmonary disease) Status: Acute - Assessment and Plan (Free Text) Plan: DC IV Rocephin/steroids, PO prednisone 20mg qd, for DC in am if remains stable
[2018-06-27] MEDS: MethylPREDNISolone 40 mg Vial IVP SCH (15:42)
--- NOTE | 2018-06-27 23:01 | PN ---
DATE: 06/27/2018 PULMONARY PROGRESS NOTE REFERRING PHYSICIAN: Dr. Natarajan. SUBJECTIVE: The patient is lying in the bed. Head at 45 degrees. Night was unremarkable. Feels better. Still have cough, wheezing and sputum production. No nausea, no vomiting, no diarrhea. No leg pain or leg swelling. OBJECTIVE: GENERAL: In no acute distress. VITAL SIGNS: Temperature is 98, heart rate 56, respiratory rate is 20, blood pressure 149/90, pulse ox 96% on nasal cannula. HEENT: Moist mucous membrane. Crowded airway. NECK: Supple. No JVD. LUNGS: Have prolonged expiratory phase with wheezing. HEART: S1 and S2. ABDOMEN: Soft, nontender. No organomegaly. EXTREMITIES: There is no edema. NEUROLOGIC: Awake, alert and follows simple command. MEDICATIONS: She is on Colace 100 mg twice a day, albuterol/Atrovent nebulizer every 6 hours, Fioricet 1 tablet every 4 hours p.r.n., Flonase 1 spray each nostril daily, Nicoderm patch daily, nasal saline 4 times daily, prednisone 20 mg daily, Protonix 40 mg daily, Synthroid 112 mcg daily, Tylenol p.r.n., Wellbutrin 50 mg daily, Xanax 0.5 mg at bedtime p.r.n., Zithromax 500 mg daily. LABORATORY DATA: Shows hemoglobin 14.7, hematocrit 44.4, WBC 12,000, platelet is 159. Sodium 138, potassium 4, chloride 105, bicarbonate 27, BUN 20, creatinine 0.8, glucose 95, calcium is 8.8, AST 21, ALT 37, alk phos is 59. Albumin is 3.3. IMPRESSION AND PLAN: Sinusitis with chronic obstructive lung disease, rheumatoid arthritis, history of methotrexate use in the past, hypothyroid. Pulmonary point of view, doing okay. We will continue steroids, antibiotics, inhaled bronchodilator. Continue Wellbutrin and Nicoderm patch. Urged her to stop smoking. Out of bed to chair, physical therapy. Gastric and deep venous thrombosis prophylaxis. Will benefit from outpatient pulmonary function tests and should get sleep study to assure there is no sleep apnea. Thank you and we will follow with you. Reed Mohamud MD
[2018-06-27] MEDS: Apap-Butalbital-Caffeine 325-50-40mg Tab PO PRN (23:37)
[2018-06-28] MEDS: Albuterol-Ipratrop 3 mg / 0.5 (3 ml) UD IH SCH ×3 (01:46→13:55)
[2018-06-28] MEDS: Pantoprazole 40 mg EC Tab PO SCH (05:59)
[2018-06-28] MEDS: Levothyroxine 112 MCG TAB PO SCH (05:59)
[2018-06-28 08:50] VITALS: BP 141/89; RESP 18; TEMP 98.1; O2SAT 96
[2018-06-28] MEDS: Fluticasone Nasal 50 mcg/Spray NS SCH (10:14)
[2018-06-28] MEDS: CHANTIX PO SCH (10:15)
[2018-06-28] MEDS: buPROPion 150 mg/24 Hours XL Tab PO SCH (10:16)
[2018-06-28 14:29] VITALS: PULSE 52
--- NOTE | 2018-06-28 23:59 | PN ---
DATE: 06/28/2018 PULMONARY PROGRESS NOTE REFERRING PHYSICIAN: Dr. Natarajan SUBJECTIVE: Sitting up in a bed. Night was unremarkable. Feels better. Wants to go home. Cough and shortness of breath has improved. No nausea, vomiting, or diarrhea. No leg pain or leg swelling. OBJECTIVE: GENERAL: In no acute distress. VITAL SIGNS: Temperature 98, heart rate 60, respiratory rate is 18, blood pressure 141/89, pulse ox 96% on 2 L nasal cannula. HEENT: Moist mucous membrane. Crowded airway. NECK: Supple. No JVD. LUNGS: Have prolonged expiratory phase. No more wheezing. HEART: S1 and S2. ABDOMEN: Soft, nontender. No organomegaly. EXTREMITIES: No edema. NEUROLOGIC: Awake, alert and follows simple commands. MEDICATIONS: Reviewed and noted no new change since yesterday reported. LABORATORY DATA: Reviewed. Noted no new lab is available since yesterday. IMPRESSION AND PLAN: Exacerbation of chronic obstructive lung disease, with also has sinusitis, degenerative joint disease, history of rheumatoid arthritis, hypothyroid, obesity. Pulmonary point of view, improved. Can be discharged home on tapered dose of steroid. Continue Chantix and Nicoderm patch. Outpatient pulmonary function test. May also benefit from screening sleep study. Thank you and we will follow with you. Reed Mohamud MD
== END 2018-06-28 18:51 | disposition home or self-care (01) | DRG 192 ==
LOC: ED 18:11 → ERH 21:02 → 3RSO 22:44 → OBSVTOIN 06-25 07:56
PROVIDERS: ADMIT Internal Medicine; ATTEND Internal Medicine
PROC: 3E0F7GC Introduction of Other Therapeutic Substance into Respiratory Tract, Via Natural or Artificial Opening (ICD-10-PCS; principal; 2018-06-25)
DX: J44.1 Chronic obstructive pulmonary disease with (acute) exacerbation (principal); H68.013 Acute Eustachian salpingitis, bilateral; M06.9 Rheumatoid arthritis, unspecified; E03.9 Hypothyroidism, unspecified; E78.00 Pure hypercholesterolemia, unspecified; F17.210 Nicotine dependence, cigarettes, uncomplicated; K21.9 Gastro-esophageal reflux disease without esophagitis; F32.9 Major depressive disorder, single episode, unspecified; F41.9 Anxiety disorder, unspecified; G43.909 Migraine, unspecified, not intractable, without status migrainosus; Z91.013 Allergy to seafood

== ENCOUNTER 2019-01-10 13:53 | Outpatient (CLI) | payer MEDICARE | END 2019-01-10 13:54 | disposition home or self-care (01) | LOC: RAD 13:53 ==